=== PATIENT | male | born 1965 | race Asian ===

== ENCOUNTER 2020-02-16 20:25 | Emergency (ER) | payer BC ==
[~2020-02-16] VITALS: Ht 185.4 cm; Wt 83.5 kg
[2020-02-16 20:44] VITALS: Ht 185.4 cm; Wt 83.5 kg
[2020-02-16 23:05] VITALS: BP 137/72
== END 2020-02-16 23:05 | disposition home or self-care (01) ==
LOC: ED 20:25
DX: S61.211A Laceration without foreign body of left index finger without damage to nail, initial encounter (principal); W45.8XXA Other foreign body or object entering through skin, initial encounter; Y93.89 Activity, other specified; Y92.89 Other specified places as the place of occurrence of the external cause; Y99.8 Other external cause status
CPT/HCPCS: 90715; J2001; Q0092